=== PATIENT | female | born 1980 | race Caucasian/White ===

== ENCOUNTER 2018-01-20 09:14 | Emergency (ER) | payer OTHER ==
[~2018-01-20] VITALS: Ht 162.6 cm; Wt 91.0 kg
[2018-01-20] MEDS ORDERED: SODIUM CHLORIDE FLUSH 10ML SYR IVF ONE ×2 (10:00→10:30)
[2018-01-20 10:13] LABS: BASOPHILS # (AUTO) 0.01 x10^3/uL (0-0.1); BASOPHILS % (AUTO) 0 % (0-1); EOSINOPHILS # (AUTO) 0.04 x10^3/uL (0-0.4); EOSINOPHILS % (AUTO) 0 % (1-7); LYMPHOCYTES % (AUTO) 15 % (22-44); MD NO; MEAN CORPUSCULAR HEMOGLOBIN 30.5 pg (27.0-34.8); MEAN CORPUSCULAR VOLUME 89.9 fL (80-100); MEAN PLATELET VOLUME 7.3 fL (7.4-10.4); MONOCYTES # (AUTO) 0.11 x10^3/uL (0.2-0.8); MONOCYTES % (AUTO) 1 % (2-9); NEUTROPHILS # (AUTO) 11.54 x10^3/uL (1.8-6.8); NEUTROPHILS % (AUTO) 84 % (42-75); PLATELET COUNT 409 x10^3/uL (130-400); RED CELL DISTRIBUTION WIDTH 14.2 % (9.6-15.2)
[2018-01-20] MEDS ORDERED: DULO30CA2 PO (10:20)
[2018-01-20 10:23] LABS: ALANINE AMINOTRANSFERASE 26 U/L (12-78); ALBUMIN 3.6 g/dL (3.4-5.0); ANION GAP 9 mmol/L (5-15); CALCIUM 8.8 mg/dL (8.5-10.1); CHLORIDE 106 mmol/L (98-107); CREATININE 0.87 mg/dL (0.55-1.02)
[2018-01-20] MEDS ORDERED: ONDANSETRON ODT 4 MG ONE (10:25)
[2018-01-20] MEDS ORDERED: MORPHINE SULFATE 4 MG/ML, 1ML ONE ×2 (10:25→11:53)
[2018-01-20] MEDS: MORPHINE SULFATE 4 MG/ML, 1ML IVPush PRN ×2 (10:27→11:55)
[2018-01-20 10:28] LABS: ALKALINE PHOSPHATASE 73 U/L (45-117); BILIRUBIN,TOTAL 0.3 mg/dL (0.2-1.0); TOTAL PROTEIN 7.9 g/dL (6.4-8.2)
[2018-01-20] MEDS ORDERED: SODIUM CHLORIDE 0.9% 1,000ML IV ONE (10:30)
[2018-01-20 10:47] LABS: MICROSCOPIC INDICATED
[2018-01-20 10:49] LABS: CULTURE INDICATED? YES
[2018-01-20] MEDS ORDERED: ONDANSETRON ODT 4 MG PO ONE (11:00)
[2018-01-20 14:28] VITALS: BP 112/52
== END 2018-01-20 14:33 | disposition home or self-care (01) ==
LOC: ED 10:43
DX: N83.291 Other ovarian cyst, right side (principal); R11.0 Nausea; Z87.442 Personal history of urinary calculi; Z90.710 Acquired absence of both cervix and uterus
CPT/HCPCS: 36415; 74176; 76830; 80053; 81001; 84703; 85025; 87086; 96374; 96376; 99285; J7030; Q0162

== ENCOUNTER 2018-10-28 09:20 | Emergency (ER) | payer OTHER ==
[~2018-10-28] VITALS: Ht 162.6 cm; Wt 91.8 kg
[~2018-10-28 09:20] MED LIST: DULO30CA2 PO
--- NOTE | 2018-10-28 09:53 | NUR ---
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 +N/V
[2018-10-28] MEDS ORDERED: RANITIDINE (10:00)
[2018-10-28] MEDS ORDERED: ESCI20TA10 PO (10:00)
--- NOTE | 2018-10-28 10:04 | NUR ---
PT TO ED FOR LEFT SIDED ABD PAIN RAD TO BACK WITH ASSOCOCIATED N/V STARTING TODAY AT 0500. PT WAS SEEN AT AND REFERRED HERE AFTER PHENERGAN WAS UNSUCCESSFUL. PT HAS HX OF OVARIAN CYSTS. PT STATES THIS PAIN FEELS SAME CYST BEFORE. PT CONNECTED TO MONITORS. VSS. EDPA TO BS FOR ASSESSMENT. ORDERS RECEIVED. IV ESTABLISHED AND LABS DRAWN. UA SAMPLE COLLECTED AND SENT. AWAITING RESULTS.
[2018-10-28] MEDS ORDERED: MORPHINE SULFATE 4 MG/ML, 1ML ONE (10:10)
[2018-10-28] MEDS ORDERED: ONDANSETRON 2MG/ML, 2ML ONE (10:10)
[2018-10-28 10:22] LABS: BASOPHILS # (AUTO) 0.04 x10^3/uL (0-0.1); BASOPHILS % (AUTO) 0 % (0-1); EOSINOPHILS # (AUTO) 0.01 x10^3/uL (0-0.4); EOSINOPHILS % (AUTO) 0 % (1-7); LYMPHOCYTES # (AUTO) 1.48 x10^3/uL (1-3.4); LYMPHOCYTES % (AUTO) 11 % (22-44); MD NO; MEAN CORPUSCULAR HEMOGLOBIN 30.8 pg (27.0-34.8); MEAN CORPUSCULAR HGB CONC 33.2 g/dL (32.4-35.8); MEAN PLATELET VOLUME 7.8 fL (7.4-10.4); MONOCYTES # (AUTO) 0.37 x10^3/uL (0.2-0.8); MONOCYTES % (AUTO) 3 % (2-9); NEUTROPHILS # (AUTO) 11.51 x10^3/uL (1.8-6.8); NEUTROPHILS % (AUTO) 86 % (42-75); PLATELET COUNT 389 x10^3/uL (130-400); RED BLOOD COUNT 4.59 x10^6/uL (3.82-5.3); RED CELL DISTRIBUTION WIDTH 13.8 % (9.6-15.2)
[2018-10-28 10:28] LABS: ALANINE AMINOTRANSFERASE 20 U/L (12-78); ALBUMIN 3.9 g/dL (3.4-5.0); ANION GAP 10 mmol/L (5-15); CHLORIDE 109 mmol/L (98-107); CREATININE 1.07 mg/dL (0.55-1.02)
[2018-10-28 10:29] LABS: MICROSCOPIC INDICATED
[2018-10-28] MEDS ORDERED: MORPHINE SULFATE 4 MG/ML, 1ML IVPush PRN (10:30)
[2018-10-28] MEDS ORDERED: SODIUM CHLORIDE FLUSH 10ML SYR IVF ONE (10:30)
[2018-10-28] MEDS ORDERED: ONDANSETRON 2MG/ML, 2ML IVPush ONE (10:30)
[2018-10-28 10:40] LABS: ALKALINE PHOSPHATASE 69 U/L (45-117); BILIRUBIN,TOTAL 0.3 mg/dL (0.2-1.0); TOTAL PROTEIN 7.4 g/dL (6.4-8.2)
[2018-10-28 10:43] LABS: CULTURE INDICATED? YES
--- NOTE | 2018-10-28 10:45 | NUR ---
PT RESTING IN ROOM WITH FAMILY AT BS. NO NEEDS EXPRESSED. CALL LIGHT WITHIN REACH. AWAITING LAB RESULTS AND CT.
--- NOTE | 2018-10-28 11:09 | NUR ---
PT TO CT AT THIS TIME.
--- NOTE | 2018-10-28 11:15 | NUR ---
Note octaviaone in EDM - 10/28/18 at 1116 by [email or web address] PT RESTING IN ROOM. VS UNCHANGED. IV ESTABLISHED AND MEDICATIONS ADMINISTERED. IVF INFUSING. NO NEEDS EXPRESSED. CALL LIGHT IN REACH. AWAITING LAB RESULTS.
[2018-10-28] MEDS ORDERED: OMNIPAQUE 350 MG/ML, 100ML BOTTLE ONE (11:30)
[2018-10-28 11:46] VITALS: BP 108/51
--- NOTE | 2018-10-28 11:46 | NUR ---
PT RESTING IN ROOM WITH FAMILY AT BS. NO NEEDS EXPRESSED. CALL LIGHT WITHIN REACH. AWAITING LAB RESULTS AND CT RESULTS.
[2018-10-28] MEDS ORDERED: KETOROLAC 30 MG/1 ML ONE (12:18)
[2018-10-28] MEDS ORDERED: KETOROLAC 30 MG/1 ML IVPush ONE (12:30)
--- NOTE | 2018-10-28 12:56 | NUR ---
FLOAT RN: PT DISCHARGED HOME IN A STABLE CONDITION. PIV WAS REMOVED WITH TIP INTACT. DC INSTRUCTIONS WERE DISCUSSED WITH PT. PT VERBALIZED UNDERSTANDING. PRESCRIPTION SCRIPT WAS PROVIDED TO PT. PT SIGNED FOR MEDICATIONS. PT AMBULATED WITH RN AND SPOUSE TO DC DESK. STEADY GAIT.
== END 2018-10-28 12:58 | disposition home or self-care (01) ==
LOC: ED 10:55
DX: N20.2 Calculus of kidney with calculus of ureter (principal)
CPT/HCPCS: 36415; 74177; 80053; 81001; 83690; 85025; 87086; 96374; 96375; 99284; J1885; J2270; J2405; Q9967

== ENCOUNTER 2018-11-07 11:01 | Emergency (ER) | payer OTHER ==
[~2018-11-07] VITALS: Ht 162.6 cm; Wt 91.3 kg
[~2018-11-07 11:01] MED LIST changes: +ESCI20TA10 PO; +RANITIDINE
--- NOTE | 2018-11-07 11:49 | NUR ---
PT TO ROOM FROM LOBBY AT THIS TIME.
[2018-11-07] MEDS ORDERED: SODIUM CHLORIDE FLUSH 10ML SYR IVF ONE (12:30)
[2018-11-07] MEDS ORDERED: ONDANSETRON 2MG/ML, 2ML IVPush ONE (12:30)
[2018-11-07] MEDS ORDERED: HYDROmorphone 2 MG/ML, 1ML IVPush PRN (12:30)
[2018-11-07] MEDS ORDERED: KETOROLAC 30 MG/1 ML IVPush ONE (12:30)
[2018-11-07 12:47] LABS: BASOPHILS # (AUTO) 0.04 x10^3/uL (0-0.1); BASOPHILS % (AUTO) 0 % (0-1); EOSINOPHILS # (AUTO) 0.05 x10^3/uL (0-0.4); EOSINOPHILS % (AUTO) 0 % (1-7); LYMPHOCYTES # (AUTO) 1.85 x10^3/uL (1-3.4); LYMPHOCYTES % (AUTO) 18 % (22-44); MD NO; MEAN CORPUSCULAR HEMOGLOBIN 31.2 pg (27.0-34.8); MEAN CORPUSCULAR HGB CONC 33.4 g/dL (32.4-35.8); MEAN CORPUSCULAR VOLUME 93.4 fL (80-100); MEAN PLATELET VOLUME 7.2 fL (7.4-10.4); MONOCYTES # (AUTO) 0.42 x10^3/uL (0.2-0.8); MONOCYTES % (AUTO) 4 % (2-9); NEUTROPHILS # (AUTO) 8.06 x10^3/uL (1.8-6.8); NEUTROPHILS % (AUTO) 77 % (42-75); PLATELET COUNT 374 x10^3/uL (130-400); RED BLOOD COUNT 4.47 x10^6/uL (3.82-5.3); RED CELL DISTRIBUTION WIDTH 13.9 % (9.6-15.2)
[2018-11-07] MEDS ORDERED: ONDANSETRON 2MG/ML, 2ML ONE (12:52)
[2018-11-07] MEDS ORDERED: KETOROLAC 30 MG/1 ML ONE (12:52)
[2018-11-07] MEDS ORDERED: HYDROmorphone 2 MG/ML, 1ML ONE (12:53)
[2018-11-07 12:55] LABS: MICROSCOPIC INDICATED
[2018-11-07 12:57] LABS: CHLORIDE 109 mmol/L (98-107)
[2018-11-07 13:05] LABS: ALANINE AMINOTRANSFERASE 20 U/L (12-78); ALBUMIN 3.7 g/dL (3.4-5.0); ALKALINE PHOSPHATASE 71 U/L (45-117); ANION GAP 8 mmol/L (5-15); BILIRUBIN,TOTAL 0.8 mg/dL (0.2-1.0); CALCIUM 8.9 mg/dL (8.5-10.1); CREATININE 0.99 mg/dL (0.55-1.02); TOTAL PROTEIN 7.3 g/dL (6.4-8.2)
--- NOTE | 2018-11-07 13:05 | NUR ---
PT MEDICATED PER ERP ORDER FOR 12/04 PAIN AND NAUSEA. LIGHTS DIMMED, WARM BLANKET PROVIDED. AT BS. CALL LIGHT WITHIN REACH. VSS/UPDATED IN COMPUTER.
[2018-11-07 13:13] LABS: CULTURE INDICATED? YES
[2018-11-07 14:00] VITALS: BP 103/58
== END 2018-11-07 14:02 | disposition home or self-care (01) ==
LOC: ED 12:35
DX: N20.2 Calculus of kidney with calculus of ureter (principal); K21.9 Gastro-esophageal reflux disease without esophagitis; F32.9 Major depressive disorder, single episode, unspecified; Z90.710 Acquired absence of both cervix and uterus; Z79.899 Other long term (current) drug therapy
CPT/HCPCS: 36415; 74018; 80053; 81001; 85025; 87086; 96374; 96375; 99284; J1170; J1885; J2405

== ENCOUNTER → 2018-12-06 | Outpatient (CLI) | payer OTHER | END | disposition home or self-care (01) | LOC: CFH 07:32 | PROVIDERS: ATTEND Family Medicine | DX: N13.30 Unspecified hydronephrosis (principal); N20.0 Calculus of kidney | CPT/HCPCS: 76770 ==

== ENCOUNTER → 2020-12-01 | Outpatient (CLI) | payer OTHER ==
[~2020-12-01] MED LIST changes: +CETI-158 PO; +FAMO20TA7 PO; +MONT10TA6 PO; +Vitamin D3 PO; +escitalopram PO
== END | disposition home or self-care (01) ==
LOC: STAR 11:13
PROVIDERS: ATTEND Otolaryngology
DX: Z20.822 Contact with and (suspected) exposure to COVID-19 (principal); J34.2 Deviated nasal septum; J34.3 Hypertrophy of nasal turbinates
CPT/HCPCS: U0003; U0005

== ENCOUNTER 2020-12-06 07:17 | Day surgery (SDC) | payer OTHER ==
[~2020-12-06] VITALS: Ht 162.6 cm; Wt 83.5 kg
[~2020-12-06 07:17] MED LIST changes: +BACITRACIN OINT 500U/GM, 15 GM ONE; +EPINEPHRINE 1 MG/ML, 1ML ONE; +LIDOCAINE/PF 1%, 30ML ONE; +OXYMETAZOLINE NASAL SPRAY 0.05%,30ML ONE
[2020-12-06 07:49] VITALS: BP 105/70
[2020-12-06 07:53] VITALS: BP 105/70
[2020-12-06] MEDS ORDERED: LACTATED RINGERS 1,000 ML IV SCH (08:00)
[2020-12-06] MEDS ORDERED: CHLORHEXIDINE 15 ML UDC PO ONE (08:00)
[2020-12-06] MEDS ORDERED: FENTANYL PF 250 MCG/5ML ONE (08:00)
[2020-12-06] MEDS ORDERED: MIDAZOLAM 1 MG/ML, 2ML ONE (08:00)
[2020-12-06] MEDS ORDERED: PROPOFOL 50 ML ONE (08:04)
[2020-12-06] MEDS ORDERED: GLYCOPYRROLATE 0.2MG/1ML, 5ML ONE (08:07)
[2020-12-06] MEDS ORDERED: ROCURONIUM 10MG/ML,5ML ONE (08:07)
[2020-12-06] MEDS ORDERED: DEXAMETHASONE 4 MG/ML, 1ML ONE (08:07)
[2020-12-06] MEDS ORDERED: CEFAZOLIN 1,000 MG ONE (08:07)
[2020-12-06] MEDS ORDERED: ONDANSETRON 2MG/ML, 2ML ONE (08:07)
[2020-12-06] MEDS ORDERED: NEOSTIGMINE 1 MG/ML, 10ML ONE (08:07)
[2020-12-06] MEDS ORDERED: SUCCINYLCHOLINE 20 MG/ML, 10ML ONE (08:07)
[2020-12-06] MEDS ORDERED: PROPOFOL 10 MG/ML, 20ML ONE (08:07)
[2020-12-06] MEDS ORDERED: REMIFENTANIL 2 MG ONE (08:53)
[2020-12-06] MEDS ORDERED: BACITRACIN OINT 500U/GM, 15 GM TP ONE (09:07)
[2020-12-06] MEDS ORDERED: OXYMETAZOLINE NASAL SPRAY 0.05%,30ML NAS ONE (09:07)
[2020-12-06] MEDS ORDERED: LIDOCAINE 1%-EPI 1:100K, 30ML INFIL ONE (09:07)
[2020-12-06] MEDS ORDERED: MEPERIDINE/PF 25MG/0.5ML IVPush PRN (09:30)
[2020-12-06] MEDS ORDERED: hydrALAzine 20 MG/ML, 1ML IV PRN (09:30)
[2020-12-06] MEDS ORDERED: OXYcodone 5 MG/5 ML ORAL.SOL UDC PO PRN (09:30)
[2020-12-06] MEDS ORDERED: ACETAMINOPHEN 325 MG TABLET PO PRN (09:30)
[2020-12-06] MEDS ORDERED: PROMETHAZINE 25 MG/ML, 1ML IVPush PRN (09:30)
[2020-12-06] MEDS ORDERED: HYDROmorphone 1 MG/ML, 1ML INJ IVPush PRN (09:30)
[2020-12-06] MEDS ORDERED: EPHEDRINE 50 MG/ML, 1ML IVPush PRN (09:30)
[2020-12-06] MEDS ORDERED: LORazepam 2 MG/ML, 1ML IVPush PRN (09:30)
[2020-12-06] MEDS ORDERED: FENTANYL PF 100 MCG/2ML IV PRN (09:30)
[2020-12-06] MEDS ORDERED: METHOCARBAMOL 1,000 MG in DEXTROSE 5% 100 ML IV PRN (09:30)
[2020-12-06] MEDS ORDERED: HALOPERIDOL 5 MG/ML IV PRN (09:30)
[2020-12-06] MEDS ORDERED: ONDANSETRON 2MG/ML, 2ML IVPush PRN (09:30)
[2020-12-06] MEDS ORDERED: LABETALOL 5MG/ML, 20ML IV PRN (09:30)
[2020-12-06] MEDS ORDERED: OXYcodone 5 MG/5 ML ORAL.SOL UDC ONE (10:05)
[2020-12-06] MEDS ORDERED: ACETAMINOPHEN 650 MG/20.3 ML UDC ONE (10:06)
== END 2020-12-06 12:26 | disposition home or self-care (01) ==
LOC: OUT 07:17
PROVIDERS: ATTEND Otolaryngology
DX: J34.2 Deviated nasal septum (principal); J34.3 Hypertrophy of nasal turbinates; J35.01 Chronic tonsillitis; J34.89 Other specified disorders of nose and nasal sinuses; K21.9 Gastro-esophageal reflux disease without esophagitis; F32.9 Major depressive disorder, single episode, unspecified; Z79.899 Other long term (current) drug therapy
CPT/HCPCS: 30140; 30520; 42826; J0171; J0330; J0690; J1100; J2250; J2405; J2704; J2710; J3010; J7120